=== PATIENT | female | born 1940 | race Asian ===

== ENCOUNTER → 2016-10-30 | Outpatient (CLI) | payer MEDICARE, OTHER ==
[~2016-10-30] MED LIST: ASPIR 8181 MG ORAL; CALCIUM CARBON600 M1 PO; LINZESS145 MCG PO; METOPROLOL SUC200 MG ORAL; NAMENDA10 MG ORAL; NORVASC10 MG ORAL; OYSCO 500+D TA1 EAC1 PO; POTASSIUM GLUC500 GM MC; SIMVASTATIN20 MG ORAL; VITAMIN D2400 UNI1 PO
--- NOTE | 2016-10-30 16:04 | GI Initial Consult Note ---
Ro,Radha Ham N.P. 10/30/16 1604: History of Present Illness General Date patient seen: Oct 30, 2016 Time patient seen: 15:55 Referring physician: SERGIO Reason for Consultation: EGD/Colonoscopy Present Illness HPI 76 year old female patient referred by Dr. Tran for EGD/colonoscopy to evaluate elevated CEA 5.1 and chronic constipation. Pt has no GI symptoms noted at this time. States she had a sigmoidoscopy a long time ago with unknown results. Home Meds Reported Medications Metoprolol Succinate (METOPROLOL SUCCINATE) 200 Mg Tab.er.24h, 200 MG ORAL DAILY , TAB 10/30/16 Aspirin* (ASPIR 81*) 81 Mg Tablet.dr, 81 MG ORAL DAILY, TAB 10/30/16 Amlodipine Besylate (Norvasc) 10 Mg Tablet, 10 MG ORAL BID, TAB 10/30/16 Memantine Hcl* (NAMENDA*) 10 Mg Tablet, 25 MG ORAL DAILY, TAB 10/30/16 Linaclotide (LINZESS) 145 Mcg Capsule, 145 MCG PO DAILY, CAP 10/30/16 Ergocalciferol (Vitamin D2) (VITAMIN D2) 400 Unit Tablet, 69346 UNIT PO QWEEK, TAB 10/30/16 Simvastatin (ZOCOR) 20 Mg Tablet, 20 MG ORAL BEDTIME, TAB 10/30/16 Potassium Gluconate (POTASSIUM GLUCONATE) 500 Gm Powder, 500 GM MC DAILY, GM 10/30/16 Calcium Carbonate/Vitamin D3 (OYSCO 500+D TABLET) 1 Each Tablet, 1 EACH PO BID, TAB 10/30/16 Calcium Carbonate (CALCIUM CARBONATE) 600 Mg Tablet, 600 MG PO BID, TAB 10/30/16 Med list reviewed/reconciled: Yes Allergies: Coded Allergies: No Known Allergies (Unverified , 10/30/16) Patient History History Provided By: Patient PMH Narrative HTN cholesterol PSHx B. Mastectomy (benign) Social History: Denies: alcohol use, drug use, other, smoking Review of Systems All Other Systems: negative except mentioned in HPI Physical Exam T 97.8 BP 146/81 P 62 Ht 5'0 WT 117 General Appearance: normal inspection, well appearing, no apparent distress, alert Head: normocephalic EENT: normal ENT inspection Neck: full range of motion, supple Respiratory: normal inspection, chest non-tender, lungs clear, normal breath sounds Cardiovascular: normal peripheral pulses, normal rate Gastrointestinal: normal inspection, non tender, soft Rectal: deferred Musculoskeletal: back normal Neurologic: normal inspection, alert, oriented x3, responsive Psychiatric: normal inspection, judgement/insight normal Skin: normal inspection, normal color, no rash, warm/dry Lymphatic: normal inspection, no adenopathy GI: Plan Problems: (1) Colonoscopy planned (2) Elevated CEA (3) Constipation Plan EGD/colonoscopy scheduled for 11/10/16. - CLD and NPO @ [place] day prior procedure given and acknowledged by patient. Seen with Dr. Baig. Thank you for referring this kind patient. RICHMOND BAIG 11/03/16 0906: History of Present Illness Present Illness Home Meds Reported Medications Metoprolol Succinate (METOPROLOL SUCCINATE) 200 Mg Tab.er.24h, 200 MG ORAL DAILY , TAB 10/30/16 Aspirin* (ASPIR 81*) 81 Mg Tablet.dr, 81 MG ORAL DAILY, TAB 10/30/16 Amlodipine Besylate (Norvasc) 10 Mg Tablet, 10 MG ORAL BID, TAB 10/30/16 Memantine Hcl* (NAMENDA*) 10 Mg Tablet, 25 MG ORAL DAILY, TAB 10/30/16 Linaclotide (LINZESS) 145 Mcg Capsule, 145 MCG PO DAILY, CAP 10/30/16 Ergocalciferol (Vitamin D2) (VITAMIN D2) 400 Unit Tablet, 16365 UNIT PO QWEEK, TAB 10/30/16 Simvastatin (ZOCOR) 20 Mg Tablet, 20 MG ORAL BEDTIME, TAB 10/30/16 Potassium Gluconate (POTASSIUM GLUCONATE) 500 Gm Powder, 500 GM MC DAILY, GM 10/30/16 Calcium Carbonate/Vitamin D3 (OYSCO 500+D TABLET) 1 Each Tablet, 1 EACH PO BID, TAB 10/30/16 Calcium Carbonate (CALCIUM CARBONATE) 600 Mg Tablet, 600 MG PO BID, TAB 10/30/16 Allergies: Coded Allergies: No Known Allergies (Unverified , 10/30/16) GI: Plan Plan The patient was seen and examined at bedside and all new and available data was reviewed in the patients chart. I agree with the above findings, impression and plan. (Patient seen earlier today. Signature stamp does not reflect patient encounter time.). -Richmond Ro,[facility] Ham N.PLou Oct 30, 2016 16:04 RICHMOND BAIG Nov 03, 2016 09:06
[2016-10-30 16:26] VITALS: BP 146/81
== END | disposition home or self-care (01) ==
LOC: PAN 15:21
DX: K59.00 Constipation, unspecified (principal); R97.0 Elevated carcinoembryonic antigen [CEA]; Z79.82 Long term (current) use of aspirin; I10 Essential (primary) hypertension; Z90.13 Acquired absence of bilateral breasts and nipples
CPT/HCPCS: 99201

== ENCOUNTER → 2016-11-10 | Day surgery (SDC) | payer MEDICARE, OTHER ==
[~2016-11-10] VITALS: Ht 165.1 cm; Wt 54.0 kg
[2016-11-10] VITALS (9 sets, daily range): BP systolic 140–155; BP diastolic 66–77
[~2016-11-10] MED LIST changes: +Propofol 10mg/ml 20ml IV ONE
--- NOTE | 2016-11-10 07:41 | Pre-Procedure Note/Attestation ---
Pre-Procedure Note/Attestation Complete Prior to Procedure Planned Procedure: not applicable Procedure Narrative: egd/colonoscopy Indications for Procedure Pre-Operative Diagnosis: screening colon, elevated CEA Attestation I attest that I discussed the nature of the procedure; its benefits; risks and complications; and alternatives (and the risks and benefits of such alternatives ), prior to the procedure, with the patient (or the patient's legal sales representative public utilities). I attest that, if there was a reasonable possibility of needing a blood transfusion, the patient (or the patient's legal sales representative public utilities) was given the [facility] standardized written summary, pursuant to the [place] Blood Safety Act ([place] Health and Safety Code # 1645, as amended). I attest that I re-evaluated the patient just prior to the surgery and that there has been no change in the patient's H&P, except as documented below: VIVI BAIG Nov 10, 2016 07:41
--- NOTE | 2016-11-10 07:46 | Short Stay Surgery H&P ---
History of Present Illness History of Present Illness Chief Complaint see recent consult note HPI Sravani Dunn is a 76 year old female who was admitted on for Constipation ,Elevated Cea Patient History Allergies: Coded Allergies: No Known Allergies (Unverified , 10/30/16) PAST MEDICAL HISTORY: Past Surgeries: Social History: Medication History Scheduled Amlodipine Besylate (Norvasc), 10 MG ORAL BID, (Reported) Aspirin* (Aspir 81*), 81 MG ORAL DAILY, (Reported) Calcium Carbonate (Calcium Carbonate), 600 MG PO BID, (Reported) Calcium Carbonate/Vitamin D3 (Oysco 500+D Tablet), 1 EACH PO BID, (Reported) Ergocalciferol (Vitamin D2) (Vitamin D2), 50,000 UNIT PO QWEEK, (Reported) Linaclotide (Linzess), 145 MCG PO DAILY, (Reported) Memantine Hcl* (Namenda*), 25 MG ORAL DAILY, (Reported) Metoprolol Succinate (Metoprolol Succinate), 200 MG ORAL DAILY, (Reported) Potassium Gluconate (Potassium Gluconate), 500 GM MC DAILY, (Reported) Simvastatin (Zocor), 20 MG ORAL BEDTIME, (Reported) Plan Attestation Are the patient's medical conditions optimized for surgery? VIVI BAIG Nov 10, 2016 07:46
--- NOTE | 2016-11-10 09:27 | Endoscopy Procedure Note ---
Endoscopy Procedure Note Indication for Procedure: screening colon, GERD Procedures Performed: EGD, colonoscopy Operative Findings/Diagnosis: gastritis Specimen: yes Pt Tolerated Procedure Well: Yes Estimated Blood Loss: none Anesthesiologist: caryl Anesthesia: MAC Implant(s) used?: No VIVI BAIG Nov 10, 2016 09:27
--- NOTE | 2016-11-10 09:38 | Anethesia Preoperative Eval ---
Anesthesia Pre-op PMH/ROS General Date of Evaluation: Nov 10, 2016 Time of Evaluation: 09:15 Anesthesiologist: caryl ASA Score: ASA 3 Mallampati Score Class I : Soft palate, uvula, fauces, pillars visible Class II: Soft palate, uvula, fauces visible Class III: Soft palate, base of uvula visible Class IV: Only hard plate visible Mallampati Classification: Class II Surgeon: kalyn Diagnosis: screning,e levated CEA Anesthesia History: none Allergies: Coded Allergies: No Known Allergies (Unverified , 10/30/16) Past Medical History Cardiovascular: Reports: HTN Anesthesia Pre-op Phys. Exam Physician Exam Last Vital Signs Date Time Temp Pulse Resp B/P Pulse Ox O2 Delivery O2 Flow Rate FiO2 11/10/16 08:08 97.7 61 14 155/66 98 Room Air Airway Exam Mallampati Score: Class II Teeth: missing Anesthesia Pre-op A/P Risk Assessment & Plan Plan: propofol Status Change Before Surgery: Addison Bojorquez MD Nov 10, 2016 09:38
--- NOTE | 2016-11-10 09:38 | Immediate Post-Op Evaluation ---
Immediate Post-Op Evalulation Immediate Post-Op Evalulation Date of Evaluation: Nov 10, 2016 Time of Evaluation: 10:00 IV Fluids: 400 Blood Pressure Systolic: 143 Blood Pressure Diastolic: 74 Pulse Rate: 65 Respiratory Rate: 24 O2 Sat by Pulse Oximetry: 97 Temperature (Fahrenheit): 98.7 Pain Score (1-10): 0 Nausea: No Vomiting: No Complications none Patient Status: awake, patent, none Hydration Status: adequate Addison Salmeron MD Nov 10, 2016 09:38
--- NOTE | 2016-11-10 09:40 | 48 Hour Post Anesthesia Eval ---
Post Anesthesia Evaluation Date of Evaluation: Nov 10, 2016 Time of Evaluation: 10:35 Blood Pressure Systolic: 145 0: 77 Pulse Rate: 65 Respiratory Rate: 20 Temperature (Fahrenheit): 98.8 O2 Sat by Pulse Oximetry: 100 Airway: patent Nausea: No Vomiting: No Pain Intensity: 0 Hydration Status: adequate Cardiopulmonary Status: stable Mental Status/LOC: patient returned to baseline Follow-up Care/Observations: n/a Post-Anesthesia Complications: tolerated well Follow-up care needed: ready to discharge Addison Salmeron MD Nov 10, 2016 09:40
--- NOTE | 2016-11-10 09:44 | Endoscopy Procedure Note ---
Endoscopy Procedure Note Indication for Procedure: screening colon, GERD, elevated CEA Procedures Performed: EGD, colonoscopy Operative Findings/Diagnosis: gastritis, hemorrhoids Specimen: yes Pt Tolerated Procedure Well: Yes Estimated Blood Loss: none Anesthesiologist: caryl Anesthesia: MAC Implant(s) used?: No 50 yrs or older w/o bx or poly: Yes 10yrs. F/U not recommended: Yes If not recommended, why?: Above average risk 10 yrs. F/U needed: Yes 18 years or older w/prev. colo: No VIVI BAIG Nov 10, 2016 09:44
--- NOTE | 2016-11-10 21:28 | Procedure Note ---
DATE OF PROCEDURE: 11/10/2016 SURGEON: Richmond Oliva M.D. PROCEDURE: Upper endoscopy with biopsy and colonoscopy. ANESTHESIOLOGIST: Addison Salmeron M.D. INSTRUMENT: Olympus adult flexible upper endoscope and colonoscope. INDICATION: Screening colonoscopy evaluation, elevated CEA, and chronic acid reflux disease. REASON FOR PROCEDURE: The procedure, risks, benefits, and possible consequences, including hemorrhage, aspiration, perforation and infection, and alternative treatments, were explained to the patient/legal guardian by Dr. Richmond Oliva and the patient/legal guardian understood and accepted these risks. DESCRIPTION OF PROCEDURE: After informed consent was obtained and the patient was adequately sedated, Olympus upper endoscope was advanced from mouth into the second portion of duodenum and retroflexion was performed in the stomach. The patient had evidence of diffuse gastritis. Random biopsy from antrum was obtained to rule out H. pylori infection. Otherwise, the rest of the upper endoscopic examination was grossly within normal limits. At this time, the upper endoscope was retrieved and the patient was turned over for colonoscopy. First, rectal exam was performed, which was positive for internal hemorrhoids. Then, the scope was advanced from the rectum into the cecum documented by ileocecal valve and appendiceal orifice. Quality of prep was fair especially in the cecum. The cecum was covered with solid stools, so we washed and we examined as best as we could. The evaluation of cecum was not 100%. The rest of the colonic examination was grossly within normal limits. There was no obvious mass, polyp, diverticulosis, or any other pathology seen. Retroflexion of rectum showed evidence of internal hemorrhoids. The patient tolerated the procedure well without any complication. SUMMARY OF FINDINGS: 1. Gastritis, status post biopsy. 2. Internal hemorrhoids. RECOMMENDATIONS: Follow up biopsy results and treat accordingly. Richmond Oliva M.D. DR: MARCELINO JOB#: [id number] CC:
--- NOTE | 2016-11-12 14:32 | Cardiology Report ---
APPROVED REPORT EKG Measurement Heart [id number] SD [id number] [id number] Sinus bradycardia Abnormal ECG
== END | disposition home or self-care (01) ==
LOC: GAS 07:12
DX: Z12.11 Encounter for screening for malignant neoplasm of colon (principal); K64.8 Other hemorrhoids; K21.9 Gastro-esophageal reflux disease without esophagitis; R97.0 Elevated carcinoembryonic antigen [CEA]; K29.50 Unspecified chronic gastritis without bleeding; B96.81 Helicobacter pylori [H. pylori] as the cause of diseases classified elsewhere; I10 Essential (primary) hypertension; Z79.82 Long term (current) use of aspirin
CPT/HCPCS: 43239; 93005; G0121; J2704; 94003; 94150

== ENCOUNTER 2016-11-22 15:15 | Outpatient (CLI) | payer MEDICARE, OTHER ==
[~2016-11-22 15:15] MED LIST changes: -Propofol 10mg/ml 20ml IV ONE
[2016-11-22 15:28] VITALS: BP 150/83
--- NOTE | 2016-11-22 15:31 | GI Progress Note ---
Assessment/Plan Problems: (1) Helicobacter pylori (H. pylori) ICD Codes: A04.8 - Other specified bacterial intestinal infections (2) Elevated CEA ICD Codes: R97.0 - Elevated carcinoembryonic antigen [CEA] SNOMED: 63794536, 121814559 (3) Constipation ICD Codes: K59.00 - Constipation, unspecified SNOMED: 87696043 Status: stable Status Narrative Seen with Dr. Oliva Assessment/Plan EGD/colonoscopy reviewed with patient >> gastritis, hemorrhoids. fu biopsy >> H. Pylori positive >> Tx Amoxicillin + Biaxin + Omeprazole RTC x 6 weeks for repeat BT repeat colon x 5 years Subjective Gastrointestinal/Abdominal: Reports: no symptoms Subjective here for procedure review Objective Last 24 Hour Vital Signs Date Time Temp Pulse Resp B/P Pulse Ox O2 Delivery O2 Flow Rate FiO2 11/22/16 15:28 97.3 73 16 150/83 General Appearance: no apparent distress, alert Cardiovascular: normal rate Respiratory/Chest: normal breath sounds, no respiratory distress Abdominal Exam: normal bowel sounds, non tender, soft Extremities: normal range of motion Objective Indication for Procedure: screening colon, GERD, elevated CEA Procedures Performed: EGD, colonoscopy Operative Findings/Diagnosis: gastritis, hemorrhoids VIVI OLIVA - Nov 10, 2016 09:44 Radha Ro N.P. November 22, 2016 15:31
== END 2016-11-22 15:42 | disposition home or self-care (01) ==
LOC: PAN 15:15
DX: A04.8 Other specified bacterial intestinal infections (principal); R97.0 Elevated carcinoembryonic antigen [CEA]; K59.00 Constipation, unspecified; K21.9 Gastro-esophageal reflux disease without esophagitis
CPT/HCPCS: 99211

== ENCOUNTER 2017-02-28 15:18 | Outpatient (CLI) | payer MEDICARE, OTHER ==
--- NOTE | 2017-02-28 15:43 | GI Progress Note ---
Assessment/Plan Problems: (1) Helicobacter pylori (H. pylori) ICD Codes: A04.8 - Other specified bacterial intestinal infections (2) Elevated CEA ICD Codes: R97.0 - Elevated carcinoembryonic antigen [CEA] SNOMED: 98631971, 771819491 (3) Constipation ICD Codes: K59.00 - Constipation, unspecified SNOMED: 78176433 Status: stable Status Narrative Seen with Dr. Oliva. Assessment/Plan s/p EGD/colonoscopy >> gastritis, hemorrhoids. H. Pylori positive >> s/p TX repeat Breath Test today, will contact patient if HP still present RTC prn repeat colon x 5 years The patient was seen and examined at bedside and all new and available data was reviewed in the patients chart. I agree with the above findings, impression and plan. (Patient seen earlier today. Signature stamp does not reflect patient encounter time.). -Richmond Oliva MD Subjective Gastrointestinal/Abdominal: Reports: no symptoms Objective T 97.5 BP 157/77 P 55 General Appearance: no apparent distress, alert Cardiovascular: normal rate, regular rhythm Respiratory/Chest: normal breath sounds, no respiratory distress Abdominal Exam: normal bowel sounds, non tender, soft Extremities: normal range of motion, non-tender, normal inspection Radha Ro NLouPLou Feb 28, 2017 15:43 RICHMOND OLIVA Mar 02, 2017 10:37
== END 2017-02-28 15:50 | disposition home or self-care (01) ==
LOC: PAN 15:18
DX: A04.8 Other specified bacterial intestinal infections (principal); R97.0 Elevated carcinoembryonic antigen [CEA]; K59.00 Constipation, unspecified
CPT/HCPCS: 83013; G0463; 99211

== ENCOUNTER 2018-07-02 08:51 | Outpatient (CLI) | payer MEDICARE, OTHER ==
--- NOTE | 2018-07-02 10:48 | GI Progress Note ---
Assessment/Plan Problems: (1) Occult blood positive stool ICD Codes: R19.5 - Other fecal abnormalities SNOMED: 91489189, 124651988 (2) Elevated CEA ICD Codes: R97.0 - Elevated carcinoembryonic antigen [CEA] SNOMED: 76039768, 754094927 (3) Constipation ICD Codes: K59.00 - Constipation, unspecified SNOMED: 04684806 Status: stable Status Narrative Seen with Dr. Oliva. Assessment/Plan repeat OB stool RTC after above resulted will consider EGD/colonoscopy if needed The patient was seen and examined at bedside and all new and available data was reviewed in the patients chart. I agree with the above findings, impression and plan. (Patient seen earlier today. Signature stamp does not reflect patient encounter time.). - Richmond Oliva MD Subjective Subjective occasional constipation Objective T 97.9 BP 158/72 P 57 96 RA General Appearance: WD/WN, no apparent distress, alert Cardiovascular: normal rate Respiratory/Chest: normal breath sounds, no respiratory distress Abdominal Exam: normal bowel sounds, non tender, soft Extremities: normal range of motion, non-tender Sierra Ro NP Jul 02, 2018 10:48
== END 2018-07-02 09:21 | disposition home or self-care (01) ==
LOC: PAN 08:51
DX: R19.5 Other fecal abnormalities (principal); R97.0 Elevated carcinoembryonic antigen [CEA]; K59.00 Constipation, unspecified
CPT/HCPCS: 99212